=== PATIENT | female | born 1950 | race Hispanic/Latino ===

== ENCOUNTER 2017-09-30 14:18 | Emergency (ER) | payer BC ==
[2017-09-30 14:23] VITALS: BP 139/78; PULSE 67; RESP 16; TEMP 98.6; O2SAT 100
--- NOTE | 2017-09-30 15:32 | RAD ---
PROCEDURE: Left Hand Radiographs. HISTORY: 5 th finger and metacarpal COMPARISON: None. FINDINGS: BONES: Normal. No fracture. JOINTS: Degenerative changes are seen at the base of the thumb SOFT TISSUES: Normal. OTHER FINDINGS: None. IMPRESSION: Degenerative changes are seen at the base of the thumb
--- NOTE | 2017-09-30 15:37 | ED PDOC ---
Upper Extremity Pain/Injury Time Seen by Provider: 09/30/17 14:24 Chief Complaint (Nursing): Finger,Hand,&Wrist Chief Complaint (Provider): left hand pain, s/p trip and fall History Per: Patient History/Exam Limitations: no limitations Onset/Duration Of Symptoms: Mins Current Symptoms Are (Timing): Still Present Additional Complaint(s): 67 yo female with no medical problems presents for evaluation of left hand injury. Pt states coming out of house there are 2 steps and she missed one resulting in a fall. Pt has abrasion on the left knee and bruising with pain of the right posterior hand. No numbness/tingling. Past Medical History Reviewed: Historical Data, Nursing Documentation, Vital Signs Vital Signs: Last Vital Signs Temp 98.6 F 09/30/17 14:21 Pulse 67 09/30/17 14:21 Resp 16 09/30/17 14:21 BP 139/78 09/30/17 14:21 Pulse Ox 100 09/30/17 14:21 - Medical History PMH: HTN, Hypercholesterolemia - Surgical History Surgical History: No Surg Hx - Family History Family History: States: No Known Family Hx - Living Arrangements Living Arrangements: With Family - Social History Current smoker - smoking cessation education provided: No - Home Medications Home Medications: Ambulatory Orders Medication Instructions Recorded Atropine Sulfate/Diphenoxyla 1 tab PO BID PRN #6 tab 03/02/14 [[place] 0.025 mg-2.5 mg] Ciprofloxacin HCl [Cipro] 500 mg PO BID #14 tab 03/02/14 Metronidazole [Flagyl] 500 mg PO TID #21 tab 03/02/14 Ondansetron [Zofran] 4 mg PO Q6 PRN #10 tab 03/02/14 - Allergies Allergies/Adverse Reactions: Allergies Allergy/AdvReac Type Severity Reaction Status Date / Time Penicillins Allergy RASH Verified 09/30/17 14:21 narcotic AdvReac NAUSEA Uncoded 03/02/14 09:06 Review of Systems ROS Statement: Except As Marked, All Systems Reviewed And Found Negative Constitutional: Negative for: Fever, Chills Skin: Positive for: Bruising Physical Exam - Reviewed Nursing Documentation Reviewed: Yes Vital Signs Reviewed: Yes - Physical Exam Appears: Positive for: Well, Non-toxic, No Acute Distress Head Exam: Positive for: ATRAUMATIC, NORMAL INSPECTION, NORMOCEPHALIC Skin: Positive for: Warm. Negative for: Normal Color (Ecchymosis of the left posterior hand over the 3-4th distal metacarpals ) Eye Exam: Positive for: Normal appearance ENT: Positive for: Normal ENT Inspection Neck: Positive for: Normal Cardiovascular/Chest: Negative for: Bradycardia, Tachycardia Respiratory: Negative for: Accessory Muscle Use, Respiratory Distress Back: Positive for: Normal Inspection Extremity: Positive for: Normal ROM, Tenderness (distal 3rd meta carpal ), Swelling (let hand) Neurologic/Psych: Positive for: Alert, Oriented - ECG O2 Sat by Pulse Oximetry: 100 Medical Decision Making Medical Decision Making: Questionable fx of the distal left 3rd metacarpal. Discussed with patient. Pt put in metacarpal splint. F/u with hand specialist. Disposition - Clinical Impression Clinical Impression: Closed fracture of 3rd metacarpal - Patient ED Disposition Is Patient to be Admitted: No Counseled Patient/Family Regarding: Diagnosis, Need For Followup - Disposition Referrals: Alexandra Branham MD [Staff Provider] - Disposition: Routine/Home Disposition Time: 15:37 Condition: STABLE Additional Instructions: Ice, elevation. Follow-up with hand specialist. Instructions: Hand Fracture (DC)
== END 2017-09-30 16:19 | disposition home or self-care (01) ==
LOC: H.ER 14:18
DX: S62.303A Unspecified fracture of third metacarpal bone, left hand, initial encounter for closed fracture (principal); W19.XXXA Unspecified fall, initial encounter; Y92.89 Other specified places as the place of occurrence of the external cause; E78.00 Pure hypercholesterolemia, unspecified; I10 Essential (primary) hypertension; Z88.0 Allergy status to penicillin